=== PATIENT | female | born 1960 | race Caucasian/White ===

== ENCOUNTER 2017-11-07 12:30 | Emergency (ER) | payer MEDICARE, MEDICAID ==
[2017-11-07 12:30] VITALS: BMI 25.7
[2017-11-07 12:58] VITALS: RESP 18; TEMP 98.9
[2017-11-07 15:00] LABS: INFLUENZA A B POS FOR INFLUENZA A (NEGATIVE)
--- NOTE | 2017-11-07 15:15 | C.PDOC ---
History Of Present Illness 57 y/o female with PMH of thyroid, colon, and ovarian cancer (remission x 8 years) presents to the ER complaining of fever, sore throat, and body aches which began yesterday. Patient states that she took Tylenol at noon today. Of note, patient states that she had a similar episode last year which she was treated with tamiflu with resolution. Pt received a flu shot this year. Patient denies having chest pain, cough, abdominal pain, nausea, vomiting, and diarrhea. Time Seen by Provider: 11/07/17 14:31 Chief Complaint (Nursing): Flu-like Symptoms History Per: Patient History/Exam Limitations: no limitations Onset/Duration Of Symptoms: Days Current Symptoms Are (Timing): Still Present Associated Symptoms: Fever, Sore Throat. denies: Cough, Nausea, Vomiting, Diarrhea Past Medical History Vital Signs: Last Vital Signs Temp 98.9 F 11/07/17 12:58 Pulse 80 11/07/17 15:23 Resp 18 11/07/17 15:23 BP 136/97 H 11/07/17 15:23 Pulse Ox 97 11/07/17 15:45 - Medical History PMH: Anemia, HTN Other PMH: Thyroid,Colon, and Ovarian Cancer Family History: States: No Known Family Hx - Social History Hx Alcohol Use: No Hx Substance Use: No - Immunization History Hx Tetanus Toxoid Vaccination: Yes Hx Influenza Vaccination: Yes Hx Pneumococcal Vaccination: Yes Review Of Systems Except As Marked, All Systems Reviewed And Found Negative. Constitutional: Positive for: Fever, Chills ENT: Positive for: Throat Pain Cardiovascular: Negative for: Chest Pain Respiratory: Negative for: Cough Gastrointestinal: Negative for: Nausea, Vomiting, Abdominal Pain, Diarrhea Physical Exam - Physical Exam Appears: Non-toxic, No Acute Distress Skin: Normal Color, Warm Head: Atraumatic, Normacephalic Eye(s): bilateral: Normal Inspection, EOMI Ear(s): Bilateral: Normal Nose: Normal Oral Mucosa: Moist Throat: Normal, No Erythema, No Exudate Neck: Normal, Normal ROM, Supple Lymphatic: Normal Exam Chest: Symmetrical Cardiovascular: Rhythm Regular Respiratory: Normal Breath Sounds, No Accessory Muscle Use, No Rales, No Rhonchi , No Wheezing Gastrointestinal/Abdominal: Normal Exam, Soft, No Tenderness Extremity: Normal ROM Neurological/Psych: Oriented x3, Normal Speech, Normal Cognition, Normal Motor, Normal Sensation ED Course And Treatment O2 Sat by Pulse Oximetry: 97 (RA) Pulse Ox Interpretation: Normal Progress Note: Influenza (+). Tamiflu ordered. Discussed with pt viral illness , symptomatic treatment and strict follow up. Case discussed with who agreed upon plan and treatment. Disposition - Disposition Referrals: Abhay Brown MD [Staff Provider] - Disposition: HOME/ ROUTINE Disposition Time: 15:14 Condition: STABLE Additional Instructions: Follow up with primary medical doctor in 1-3 days without fail for further evaluation. Take medications as prescribed. Return to the emergency department at any time if symptoms persist or worsen. Prescriptions: Oseltamivir Phosphate [Tamiflu] 75 mg PO BID #10 capsule Instructions: Influenza (ED) Forms: [employer] ([place]) - Clinical Impression Clinical Impression: Influenza - PA / [employer] / Resident Statement MD/DO has reviewed & agrees with the documentation as recorded. - Scribe Statement The provider has reviewed the documentation as recorded by the Inez Carranza Provider Attestation All medical record entries made by the Scribe were at my direction and personally dictated by me. I have reviewed the chart and agree that the record accurately reflects my personal performance of the history, physical exam, medical decision making, and the department course for this patient. I have also personally directed, reviewed, and agree with the discharge instructions and disposition.
[2017-11-07 15:24] VITALS: BP 136/97; PULSE 80
[2017-11-07 15:41] VITALS: O2SAT 97
== END 2017-11-07 15:24 | disposition home or self-care (01) ==
LOC: C.ER 12:30
DX: J11.1 Influenza due to unidentified influenza virus with other respiratory manifestations (principal); I10 Essential (primary) hypertension